=== PATIENT | female | born 1985 | race Two or more races ===

== ENCOUNTER → 2023-06-25 | Outpatient (CLI) | payer MEDICAID ==
[~2023-06-25] MED LIST: PREN-145 OR
[2023-06-25 08:25] LABS: Hemoglobin 11.7 g/dL (12.2-16.2)
[2023-06-25 08:27] LABS: Hematocrit 36.4 % (36.0-46.0); Mean Corpuscular Hemoglobin 26.9 pg (28.0-32.0); Mean Corpuscular Hgb Conc. 32.3 g/dL (32.0-36.0); Mean Corpuscular Volume 83.4 fL (80.0-100.0); Red Blood Cells 4.36 10^6/uL (4.0-5.20); Red Cell Distribution Width 13.9 % (11.8-14.3); White Blood Cell 11.8 10^3/uL (4.4-10.8)
[2023-06-25 08:41] LABS: Band Neutrophils % (manual) 0; Basophils % (manual) 0 (0.0-2.0); Blast Cells 0; Eosinophils % (manual) 0 (0-7); Metamyelocytes % 0; Promyelocytes % 0; Reactive Lymphocytes 0
[2023-06-25 09:39] LABS: Lymphocytes % (manual) 23 (10.0-50.0); Monocytes % (manual) 5 (0-12); Myelocytes % 5
[2023-06-25 09:40] LABS: Platelet Estimate Adequate
== END | disposition home or self-care (01) ==
LOC: LAB 07:59
PROVIDERS: ATTEND Obstetrics & Gynecology
DX: Z34.80 Encounter for supervision of other normal pregnancy, unspecified trimester (principal); Z3A.00 Weeks of gestation of pregnancy not specified
CPT/HCPCS: 36415; 82951; 83036; 85007; 85027

== ENCOUNTER 2023-08-23 11:43 | Observation (INO) | payer MEDICAID | END 2023-08-23 12:52 | disposition home or self-care (01) | LOC: UNDOADMOB 11:43 → LDRP 11:43 → UNDODISOB 12:52 | PROVIDERS: ADMIT Obstetrics & Gynecology; ATTEND Obstetrics & Gynecology | DX: O24.419 Gestational diabetes mellitus in pregnancy, unspecified control (principal); O36.8330 Maternal care for abnormalities of the fetal heart rate or rhythm, third trimester, not applicable or unspecified; Z3A.35 35 weeks gestation of pregnancy | CPT/HCPCS: 59025; 81002; 82948; 82962; 94760; G0378 ==

== ENCOUNTER 2023-08-30 10:17 | Observation (INO) | payer MEDICAID | END 2023-08-30 12:18 | disposition home or self-care (01) | LOC: LDRP 10:17 → UNDOADMOB 10:17 → LDRP 10:29 | PROVIDERS: ADMIT Obstetrics & Gynecology; ATTEND Obstetrics & Gynecology | DX: O24.419 Gestational diabetes mellitus in pregnancy, unspecified control (principal); Z3A.36 36 weeks gestation of pregnancy | CPT/HCPCS: 59025; 76818; 81002; 82948; 82962; 94760; G0378 ==

== ENCOUNTER 2023-09-03 08:41 | Observation (INO) | payer MEDICAID | END 2023-09-03 10:44 | disposition home or self-care (01) | LOC: UNDOADMOB 08:41 → LDRP 08:41 → UNDODISOB 10:44 | PROVIDERS: ADMIT Obstetrics & Gynecology; ATTEND Obstetrics & Gynecology | DX: O24.419 Gestational diabetes mellitus in pregnancy, unspecified control (principal); O09.513 Supervision of elderly primigravida, third trimester; O36.8130 Decreased fetal movements, third trimester, not applicable or unspecified; O62.9 Abnormality of forces of labor, unspecified; O26.893 Other specified pregnancy related conditions, third trimester; R10.30 Lower abdominal pain, unspecified; Z3A.36 36 weeks gestation of pregnancy; Z79.899 Other long term (current) drug therapy | CPT/HCPCS: 59025; 76818; 81002; 94760; G0378 ==

== ENCOUNTER 2023-09-10 08:12 | Observation (INO) | payer MEDICAID | END 2023-09-10 09:10 | disposition home or self-care (01) | LOC: LDRP 08:12 → UNDOADMOB 08:12 → LDRP 08:14 → UNDODISOB 09:10 | PROVIDERS: ADMIT Obstetrics & Gynecology; ATTEND Obstetrics & Gynecology | DX: O24.419 Gestational diabetes mellitus in pregnancy, unspecified control (principal); O62.9 Abnormality of forces of labor, unspecified; O26.893 Other specified pregnancy related conditions, third trimester; R10.30 Lower abdominal pain, unspecified; Z3A.37 37 weeks gestation of pregnancy | CPT/HCPCS: 59025; 76818; 81002; 82948; 82962; G0378 ==

== ENCOUNTER 2023-09-17 08:07 | Observation (INO) | payer MEDICAID ==
[2023-09-20] MEDS ORDERED: DOCU-265 PO (02:13)
[2023-09-20] MEDS ORDERED: IBU600T PO (02:13)
[2023-09-20] MEDS ORDERED: PREN-96 PO (02:13)
== END 2023-09-17 09:27 | disposition home or self-care (01) ==
LOC: UNDOADMOB 08:07 → LDRP 08:07
PROVIDERS: ADMIT Obstetrics & Gynecology; ATTEND Obstetrics & Gynecology
DX: O24.419 Gestational diabetes mellitus in pregnancy, unspecified control (principal); Z3A.38 38 weeks gestation of pregnancy
CPT/HCPCS: 59025; 76818; 81002; 82948; 82962; 94760; G0378